=== PATIENT | male | born 1960 | race Caucasian/White ===

== ENCOUNTER 2017-04-16 12:08 | Day surgery (SDC) | payer MEDICAID ==
[~2017-04-16] VITALS: Ht 188 cm; Wt 152.6 kg
[~2017-04-16 12:08] MED LIST: ACCUPRIL10 MG PO; AVAPRO300 M1 PO; GLUCOSAMINE & C1 CAP PO; LIPITOR20 MG PO; MULTIPLE VITAMI1 CAP PO; MULTIPLE VITAMI1 TAB PO; VITAMIN C BUFF500 MG PO; ZYLOPRIM 300MG300 MG PO
[2017-04-16] MEDS ORDERED: ZESTORETIC 25 M1 TAB PO (12:27)
[2017-04-16] MEDS ORDERED: CADUET 10 MG-101 TAB PO (12:29)
[2017-04-16 12:50] VITALS: BP 142/91; PULSE 64; TEMP 97.5
[2017-04-16 16:00] VITALS: BP 124/81; PULSE 69; TEMP 97.2
[2017-04-16 16:15] VITALS: BP 128/82; PULSE 65
[2017-04-16 16:30] VITALS: BP 122/78; PULSE 64
[2017-04-16 16:45] VITALS: BP 120/79; PULSE 60
== END 2017-04-16 17:20 | disposition home or self-care (01) ==
LOC: SDCO 12:08
DX: N20.0 Calculus of kidney (principal); I10 Essential (primary) hypertension; F17.210 Nicotine dependence, cigarettes, uncomplicated; E66.9 Obesity, unspecified; Z87.442 Personal history of urinary calculi
CPT/HCPCS: C1769; J0690; J2405; J2704; J2710; J3010; J7120; Q9967

== ENCOUNTER 2017-04-24 15:15 | Observation (INO) | payer MEDICAID ==
[~2017-04-24] VITALS: Ht 188 cm; Wt 152.7 kg
[2017-04-24] VITALS (10 sets, daily range): BP systolic 124–155; BP diastolic 66–102; PULSE 51–88; TEMP 97.5–98.7
[~2017-04-24 15:15] MED LIST changes: +CADUET 10 MG-101 TAB PO; +ZESTORETIC 25 M1 TAB PO
[2017-04-24 16:31] LABS: HEMATOCRIT 49.4 % (42.0-52.0); HEMOGLOBIN 16.4 g/dl (13.5-18.0); MEAN CELL VOLUME 94 fl (80.0-100.0); MEAN CORPUSCULAR HEMOGLOBIN 31 pg (27.0-31.0); MEAN CORPUSCULAR HGB CONC 33 g/dl (33.0-37.0); PLATELET COUNT 205 K/mm3 (130-400); RED BLOOD COUNT 5.24 M/mm3 (4.20-5.60)
[2017-04-24 16:37] LABS: ALBUMIN 4.2 gm/dL (3.5-5.0); BILIRUBIN,TOTAL 0.7 mg/dL (0.0-1.0); CALCIUM 9.6 mg/dL (8.4-10.2); CREATININE, serum 1.9 mg/dL (0.66-1.25); POTASSIUM 4.7 mmol/L (3.4-5.0); TOTAL PROTEIN 8.2 gm/dL (6.4-8.2)
[2017-04-24 16:56] LABS: BAND 10 % (0-10); EOSINOPHIL 1 % (0-4); LYMPHOCYTE 7 % (20.0-51.0); NEUTROPHILS 69 % (42.0-75.2); PLATELET ESTIMATE NORMAL (NORMAL)
[2017-04-25 00:40] VITALS: BP 134/67; PULSE 58; TEMP 97.7
[2017-04-25 04:14] VITALS: BP 133/67; PULSE 50; TEMP 97.5
[2017-04-25 06:57] LABS: CALCIUM 9.4 mg/dL (8.4-10.2); CREATININE, serum 1.84 mg/dL (0.66-1.25); POTASSIUM 4.8 mmol/L (3.4-5.0)
[2017-04-25 09:45] VITALS: BP 139/67; PULSE 56; TEMP 98
== END 2017-04-25 10:50 | disposition home or self-care (01) ==
LOC: COL.ER 15:15 → SDCO 17:47 → SURG 19:40 → SDCO 19:41 → SURG 19:41 → SDCO 04-25 10:50 → SURG 04-25 10:50
PROVIDERS: Emergency Medicine; Urology
DX: N13.2 Hydronephrosis with renal and ureteral calculous obstruction (principal); N17.9 Acute kidney failure, unspecified; I10 Essential (primary) hypertension; Z90.5 Acquired absence of kidney; N28.9 Disorder of kidney and ureter, unspecified; F17.210 Nicotine dependence, cigarettes, uncomplicated; Z79.82 Long term (current) use of aspirin; M51.36 Other intervertebral disc degeneration, lumbar region; Z68.41 Body mass index [BMI] 40.0-44.9, adult
CPT/HCPCS: OP; C1769; C2617; G0378; J0690; J1100; J1170; J2405; J2704; J2765; J3010; J7030; J7120; Q9967